=== PATIENT | male | born 1975 | race Caucasian/White ===

== ENCOUNTER → 2016-05-04 | Outpatient (CLI) | payer BC ==
[2016-05-04 11:14] LABS: BASO # 0.1 K/mm3 (0.0-0.2); BASO % 0.6 % (0.0-1.0); EOS # 0.1 K/mm3 (0.0-0.50); EOS % 1.1 % (0.0-3.0); LARGE UNSTAINED CELL # 0.2 K/mm3 (0.0-0.4); LARGE UNSTAINED CELL % 1.9 % (0.0-4.0); LYMPH % 24.1 % (24.0-44.0); MEAN CORPUSCULAR HEMOGLOBIN 31.4 pg (27.0-33.0); MEAN CORPUSCULAR HGB CONC 34.5 g/dl (32.0-36.5); MEAN CORPUSCULAR VOLUME 91.1 fl (80.0-96.0); MONO # 0.9 K/mm3 (0.0-0.8); MONO % 7.7 % (0.0-5.0); NEUTROPHILS # 7.6 K/mm3 (1.8-7.7); NEUTROPHILS % 64.7 % (36.0-66.0); PLATELET COUNT, AUTOMATED 243 k/mm3 (150-450); RED CELL DISTRIBUTION WIDTH 12.6 % (11.5-14.5); WHITE BLOOD COUNT 11.8 K/mm3 (4.0-10.0)
[2016-05-04 11:30] LABS: ANION GAP 10 MEQ/L (8-16); BLOOD UREA NITROGEN 8 MG/DL (7-18); CALCIUM LEVEL 9.4 MG/DL (8.5-10.1); CARBON DIOXIDE LEVEL 30 MEQ/L (21-32); CHLORIDE LEVEL 102 MEQ/L (98-107); CREATININE FOR GFR 1.09 MG/DL (0.70-1.30); GLOMERULAR FILTRATION RATE > 60.0 (>60); GLUCOSE, FASTING 90 MG/DL (70-105); POTASSIUM SERUM 3.7 MEQ/L (3.5-5.1); SODIUM LEVEL 142 MEQ/L (136-145)
== END ==
LOC: M WUC 09:10
PROVIDERS: ATTEND Physician Assistant
DX: R10.814 Left lower quadrant abdominal tenderness (principal)

== ENCOUNTER → 2016-05-04 | Outpatient (CLI) | payer BC ==
[~2016-05-04] MED LIST: GASTROGRAFIN SOLUTION 30ML (Q9963) As Ordered ONE; ISOVUE-370 76% 100ML VIAL (Q9967) As Ordered ONE
--- NOTE | 2016-05-04 12:26 | REP ---
CT study of the abdomen and pelvis with IV and oral contrast: History: Left lower quadrant abdominal pain. CT contrast dose: 100 ml of Isovue 370 is administered intravenously by auto injector. CT findings: Preliminary digital infrastructure technician radiograph is unremarkable. The lung bases are clear. There is minimal diffuse fatty infiltration of the liver. No focal liver lesion is seen. Spleen is unremarkable. No adrenal lesion is seen. There are one or two normal-sized celiac axis lymph nodes. No pancreatic abnormality is observed. The gallbladder is unremarkable. The kidneys enhance symmetrically. There is an intrarenal calculus in the left mid kidney level. This stone measures 5 mm in greatest diameter. No hydronephrosis is seen. No retroperitoneal mass or adenopathy is observed. A normal non-inflamed appendix is seen in the right pelvis. There are dystrophic calcifications in the prostate. Urinary bladder is unremarkable. There is focal mural thickening in the descending colon. There is a lobule of inflamed pericolonic fat adjacent the descending colon. Adjacent to this is some streakiness in the paracolic gutter. The findings are compatible with epiploic appendagitis of the descending colon. The inflamed fat lobule measures 2.1 cm x 1.8 cm x 0.9 cm. There is no evidence of diverticulosis or diverticulitis. No free air or abscess is seen. Small and large intestinal bowel loops are otherwise unremarkable. There are surgical clips along the left lateral pelvic sidewall and in the inguinal soft tissues bilaterally. Impression: 1. Epiploic appendagitis affecting the descending colon in the left lower quadrant. 2. Intrarenal calculus left mid kidney, 5 mm in diameter. No hydronephrosis. 3. Surgical clips along the left pelvic sidewall and in the left inguinal and right inguinal soft tissues. 4. Mild diffuse fatty infiltration of the liver. 5. Dystrophic calcifications in the prostate. Normal appendix. Signed by Raymon Benavides MD 05/04/2016 02:30 P
== END ==
LOC: M RAD 10:03
PROVIDERS: ATTEND Physician Assistant
DX: K63.89 Other specified diseases of intestine (principal); N20.0 Calculus of kidney; K76.0 Fatty (change of) liver, not elsewhere classified; N42.89 Other specified disorders of prostate; R10.814 Left lower quadrant abdominal tenderness
CPT/HCPCS: 74177; Q9963; Q9967

== ENCOUNTER → 2021-04-25 | Outpatient (CLI) | payer BC | LOC: M WUC 12:25 | PROVIDERS: ATTEND Physician Assistant | DX: S39.012A Strain of muscle, fascia and tendon of lower back, initial encounter (principal); X58.XXXA Exposure to other specified factors, initial encounter; Y92.89 Other specified places as the place of occurrence of the external cause; Y93.89 Activity, other specified; Y99.8 Other external cause status ==